=== PATIENT | male | born 1990 | race Caucasian/White ===

== ENCOUNTER 2019-10-29 19:03 | Emergency (ER) | payer BC, SELFPAY ==
[2019-10-29 19:21] VITALS: BP 157/96; PULSE 122; RESP 21; TEMP 37; O2SAT 98; BMI 33.9
--- NOTE | 2019-10-29 19:32 | HMH.EDUTC ---
[facility] [place] Disposition Clinical Impression: URI (upper respiratory infection) Qualifiers: URI type: unspecified URI Qualified Code(s): J06.9 - Acute upper respiratory infection, unspecified Disposition: Home, Self-Care Condition on Discharge: Good Instructions: DI for Fever (Symptom) -- Adult, Preventing the Spread of Coronavirus Discharge Instructions Additional Instructions: *Monitor Temp, Over the counter Motrin or Tylenol as directed/as needed Tylenol every 4 hours and Motrin every 6 hours (as long as your family doctor has told you that you can take it) for fever or pain. and straight to ER if unable to lower temp less than 101.0 after medication given *Warm salt water gargles may help to soothe the throat *Throat Lozenges *Warm fluids like tea with honey may help to soothe the throat *Sleep elevated *Humidifier/Vaporizer You was given handout for instructions to Quarantine for COVID19 make sure to follow instructions to help prevent the spread of COVID Go home and self Quarantine while waiting for result of testing, call back to the [facility] on Saturday after 1pm to see if your test results are back and follow instructions on card for quarantine instructions Your throat swab was sent for culture. Those results are typically sent to your primary care. Be sure to follow up in 2-3 days with your family doctor/primary care physician if no improvement so they can review those result and treat if necessary. If you don?t have a primary care doctor, I recommend you get one but in the mean time, you will have to return to a walk in clinic Follow up IMMEDIATELY for new or worsening symptoms or no Noticeable improvement over the next 48-72 hours. 911 for difficulty breathing or swallowing Prescriptions: Fluticasone Propionate [Flonase 50mcg nasal spray 16gm] 1 - 2 spr NS DAILY #1 bottle Transmission Status: Received by [facility] # Azithromycin [Z-Ovidio 250mg Tab] 250 mg PO DIRECTED #6 tab Transmission Status: Received by [facility] # Referrals: Abbe Rodriguez MD [Primary Care Provider] - As needed Forms: Work/School Release Time of Disposition: 19:56 Medical Decision Making - Tristen Inquiry Pt receiving controlled substance: No Tristen was queried for this patient: No Vital Signs: 10/29/19 19:21 10/29/19 19:52 Temperature 98.6 F 98.6 F Temperature Source Oral Pulse Rate 111 H Pulse Rate [Right Brachial] 122 H Respiratory Rate 21 21 Blood Pressure 157/96 H Blood Pressure [Right Arm] 157/96 H Blood Pressure Mean [Right Arm] 116 Blood Pressure Source [Right Arm] Automatic Cuff Blood Pressure Position [Right Arm] Sitting 02 Sat by Pulse Oximetry 98 Oxygen Delivery Method Room Air - Lab Data Lab results reviewed: Yes: I reviewed the patient's lab results. Orders (Tests/Meds): ORDERS Category Date Time Status SARS-CoV-2, NILA Stat Lab 10/29/19 19:45 Received [facility] [place] HPI - General Stated complaint: fever,body pain Time Seen by Provider: 10/29/19 19:32 Mode of Arrival: Ambulatory Source of Information: Patient Limitations: No Limitations Description of Symptoms (Recalled from Triage Doc. by RN): PATIENT C/O CHILLS, DIARRHEA, FEVER, HEADACHE, AND BODY ACHES SINCE SATURDAY HEENT Symptoms (Recalled from RN notes): No Resp Symptoms (Recalled from RN notes): No Skin Symptoms (Recalled from RN notes): No MS Symptoms (Recalled from RN notes): Yes Functional Status (Recalled from RN notes): WNL - History of Present Illness Provider Complaint: Patient states that he hasnt been feeling well since Saturday States that he has been having diarrhea, body aches, chills, fever and over all feeling ill State that his throat felt scratchy today and was achy all over so he came in to get checked out - Related Data Previous Rx's Medication Instructions Recorded Azithromycin [Z-Ovidio 250mg Tab] 250 mg PO DIRECTED #6 tab 10/29/19 Fluticasone Propionate [Flonase 1 - 2 spr NS DAILY #
[2019-10-29 19:52] VITALS: BP 157/96; PULSE 111; RESP 21; TEMP 37; O2SAT 98
[2019-10-30 14:55] LABS: UTC Strep Screen (Rapid) Negative (Negative)
[2019-10-31 13:02] LABS: Covid-19 Nasal PCR Sendout Lex Not Detected
== END 2019-10-29 19:55 | disposition home or self-care (01) ==
PROVIDERS: Emergency Provider Nurse Practitioner; PCP Family Medicine
DX: J06.9 Acute upper respiratory infection, unspecified (principal)
CPT/HCPCS: 87880; 99201; U0004

== ENCOUNTER 2020-10-08 13:44 | Emergency (ER) | payer BC, SELFPAY ==
[2020-10-08 14:20] VITALS: BP 142/91; PULSE 82; RESP 19; TEMP 36.9; O2SAT 99; BMI 31.3
--- NOTE | 2020-10-08 15:03 | HMH.EDUTC ---
[facility] [place] Disposition Clinical Impression: Impacted ear wax Qualifiers: Laterality: right Qualified Code(s): H61.21 - Impacted cerumen, right ear Disposition: Home, Self-Care Condition on Discharge: Good Instructions: Cerumen Impaction Additional Instructions: Over the counter Debrox may help with ear wax removal use as directed on bottle Return if needed Straight to ER if any life threatening symptoms Referrals: Michael Connolly MD [Primary Care Provider] - As needed Time of Disposition: 15:17 Medical Decision Making - Tristen Inquiry Pt receiving controlled substance: No Tristen was queried for this patient: No Vital Signs: 10/08/20 14:20 10/08/20 15:18 Temperature 98.4 F 98.4 F Temperature Source Oral Pulse Rate 82 Pulse Rate [Right Brachial] 82 Respiratory Rate 19 19 Blood Pressure 142/91 H Blood Pressure [Right Arm] 142/91 H Blood Pressure Mean [Right Arm] 108 Blood Pressure Source [Right Arm] Automatic Cuff Blood Pressure Position [Right Arm] Sitting 02 Sat by Pulse Oximetry 99 Oxygen Delivery Method Room Air [facility] [place] HPI - General Stated complaint: compacted ear wax in Rt ear Time Seen by Provider: 10/08/20 15:03 Mode of Arrival: Ambulatory Source of Information: Patient Limitations: No Limitations Description of Symptoms (Recalled from Triage Doc. by RN): PATIENT C/O COMPACTED EAR WAX TO RIGHT EAR, DECREASED HEARING SINCE SATURDAY HEENT Symptoms (Recalled from RN notes): Yes Resp Symptoms (Recalled from RN notes): No Skin Symptoms (Recalled from RN notes): No MS Symptoms (Recalled from RN notes): No Functional Status (Recalled from RN notes): WNL - History of Present Illness Provider Complaint: Patient states that he wears ear plugs at work State that when he put his ear plug in he felt it push wax back into his right ear and has been unable to hear out of it for the the last few days State that he has tried multiple times to get it out but has been unable to get it out so he came in - Related Data Allergies Allergy/AdvReac Type Severity Reaction Status Date / Time No Known Allergies Allergy Verified 10/29/19 19:27 - Worker's Comp Is this a Worker's Comp case?: No [facility] History - Hepatitis A Screen Drug use history?: No High risk sexual behaviors?: No History of sexually transmitted infection?: No Currently employed?: No Childcare worker?: No Do you have indoor plumbing?: Yes Do you have electricity?: Yes Attestation statement:: This patient has been screened for Hepatitis A risk factors. I have reviewed the patient's past medical history: Yes - Social History Smoking Status: Current every day smoker Tobacco Type: cigarettes # Packs/Day (cigarettes): 0 Alcohol Intake: never Occupational Status: other ROS Obtained: Yes All systems reviewed & no additional complaints, Yes Systems reviewed as appropriate & no additional complaints - Constitutional Constitutional: Reports system reviewed and no additional complaints, except as docu, Denies body ache, Denies chills, Denies fever(s) - ENT Ears, Nose, Mouth, and Throat: Reports system reviewed and no additional complaints, except as docu, Denies otalgia, Denies sinus pain, Denies sinus pressure, Denies sore throat - Cardiovascular Cardiovascular: Reports system reviewed and no additional complaints, except as docu - Respiratory Respiratory: Reports system reviewed and no additional complaints, except as docu - Gastrointestinal Gastrointestingal: Reports: system reviewed and no additional complaints, except as docu Physical Exam - General General appearance: alert, in no apparent distress - Expanded ENT Exam TM/Canal exam: Right TM: cerumen impaction - Respiratory Respiratory exam: Present: normal lung sounds bilaterally. Absent: respiratory distress - Cardiovascular Cardiovascular exam: Present: regular rate, normal rhythm. Absent: JVD - Neurological Exam Neurological exam: Present: alert, orie
[2020-10-08 15:18] VITALS: BP 142/91; PULSE 82; RESP 19; TEMP 36.9; O2SAT 99
== END 2020-10-08 15:23 | disposition home or self-care (01) ==
PROVIDERS: Emergency Provider Nurse Practitioner; PCP Family Medicine
DX: H91.01 Ototoxic hearing loss, right ear (principal); H61.21 Impacted cerumen, right ear; F17.210 Nicotine dependence, cigarettes, uncomplicated
CPT/HCPCS: 99202; G0463

== ENCOUNTER 2022-09-06 01:17 | Emergency (ER) | payer BC, SELFPAY ==
[2022-09-06 01:19] VITALS: BP 120/69; PULSE 103; RESP 16; TEMP 36.8; O2SAT 96; BMI 35.0
[2022-09-06 01:24] VITALS: BP 120/69; PULSE 103; RESP 18; O2SAT 100
[2022-09-06 01:26] VITALS: BMI 35.0
--- NOTE | 2022-09-06 01:29 | XR_ITS ---
PROCEDURE INFORMATION: Exam: XR Right Hand Exam date and time: 09/06/2022 1:40 AM Age: 32 years old Clinical indication: Injury or trauma; Fall; Blunt trauma (contusions or hematomas); Hand; Patient HX: C/O right thumb pain TECHNIQUE: Imaging protocol: Radiologic exam of the right hand. Views: 3 or more views. COMPARISON: No relevant prior studies available. FINDINGS: Bones/joints: No acute osseous abnormality. No dislocation. Soft tissues: No significant soft tissue abnormalities. IMPRESSION: No evidence of acute fracture or dislocation.
--- NOTE | 2022-09-06 01:29 | XR_ITS ---
PROCEDURE INFORMATION: Exam: XR Chest Exam date and time: 09/06/2022 1:43 AM Age: 32 years old Clinical indication: Injury or trauma; Fall; Blunt trauma (contusions or hematomas); Patient HX: Right posterior pain. Fell on corner of bathtub TECHNIQUE: Imaging protocol: Radiologic exam of the chest. Views: 2 views. COMPARISON: No relevant prior studies available. FINDINGS: Lungs: No significant or acute findings. No consolidation. Pleural spaces: No significant costophrenic angle blunting. No pneumothorax. Heart/Mediastinum: Heart size is normal. Bones/joints: No acute osseous abnormality. IMPRESSION: No acute abnormality demonstrated. Nondisplaced fractures of the posterior right 9th, 10th and 11th ribs seen on subsequent chest CT not clearly demonstrated on the current x-ray.
--- NOTE | 2022-09-06 01:29 | XR_ITS ---
PROCEDURE INFORMATION: Exam: XR Pelvis Exam date and time: 09/06/2022 1:38 AM Age: 32 years old Clinical indication: Injury or trauma; Fall; Blunt trauma (contusions or hematomas); Does not apply; Pelvic region TECHNIQUE: Imaging protocol: Radiologic exam of the pelvis. Views: 1 or 2 view. COMPARISON: No relevant prior studies available. FINDINGS: Bones/joints: No acute osseous abnormality. No acute fracture. No dislocation. Soft tissues: No significant soft tissue abnormalities. IMPRESSION: No acute abnormality demonstrated.
--- NOTE | 2022-09-06 01:29 | CT_ITS ---
PROCEDURE INFORMATION: Exam: CT Chest With Contrast; Diagnostic Exam date and time: 09/06/2022 1:58 AM Age: 32 years old Clinical indication: Injury or trauma; Fall; Patient HX: C/O right posterior chest pain. Fell and hit right side on corner of bathtub TECHNIQUE: Imaging protocol: Diagnostic computed tomography of the chest with contrast. 3D rendering (Not supervised by radiologist): MIP and/or 3D reconstructed images were created by the technologist. Radiation optimization: All CT scans at this facility use at least one of these dose optimization techniques: automated exposure control; mA and/or kV adjustment per patient size (includes targeted exams where dose is matched to clinical indication); or iterative reconstruction. Contrast material: ISOVUE; Contrast volume: 75 ml; Contrast route: IV; REPORTING DATA: Count of CT and Cardiac NM exams in prior 12 months: This patient has received 0 known CTs and 0 known cardiac nuclear medicine studies in the 12 months prior to the current study. COMPARISON: CR XR CHEST 2V 09/06/2022 1:43 AM FINDINGS: Lungs: Minimal bibasilar atelectasis. No consolidation. Pleural spaces: No significant pleural effusion. No pneumothorax. Heart: Heart and mediastinal structures appear intact. Heart size is normal. Lymph nodes: No enlarged lymph nodes. Vasculature: No acute abnormality. No aortic aneurysm, pseudoaneurysm or dissection. Bones/joints: Acute nondisplaced fractures of the posterior right 9th, 10th and 11th ribs. Soft tissues: No significant soft tissue abnormalities. IMPRESSION: Acute nondisplaced fractures of the posterior right 9th, 10th and 11th ribs.
[2022-09-06 01:30] VITALS: BP 126/75; PULSE 100; RESP 20; O2SAT 95
[2022-09-06 01:44] LABS: Basophils % 0.5 % (0.1-2.0); Eosinophils # 0.3 K/mm3 (0.0-0.4); Eosinophils % 3.5 % (0.1-12.0); Hematocrit 45.7 % (42.0-52.0); Hemoglobin 15.4 g/dL (14.1-18.0); Lymphocytes # 1.8 K/mm3 (0.7-4.5); Lymphocytes % 21.5 % (10-50); Mean Corpuscular HGB Conc 33.8 g/dL (31.8-35.4); Mean Corpuscular Hemoglobin 30.8 pg (27.0-31.2); Mean Platelet Volume 8.7 fl (7.4-10.4); Monocytes # 0.6 K/mm3 (0.1-1.0); Monocytes % 7.3 % (1.7-9.3); Neutrophils # 5.7 K/mm3 (1.8-7.8); Neutrophils % 67.1 % (37.0-80.0); Platelet Count 219 K/mm3 (142-424); Red Blood Count 5.02 M/mm3 (4.60-6.20); Red Cell Distribution Width 13.5 % (11.5-17.5); White Blood Count 8.5 K/mm3 (4.8-10.8)
[2022-09-06 01:49] LABS: Chloride 98 mmol/L (98-107)
[2022-09-06 01:50] LABS: Potassium 4.3 mmoL/L (3.5-5.1); Sodium 140 mmol/L (136-145)
[2022-09-06 01:52] LABS: Alanine Aminotransferase 57 U/L (12-78); Alkaline Phosphatase 77 U/L (38-126); Aspartate Amino Transferase 39 U/L (17-59); Bilirubin,Total 0.2 mg/dl (0.2-1.3); Blood Urea Nitrogen 10 mg/dl (9-20); Creatinine Clearance Estimated 181 mL/min (50-200); Estimated Glomerular Filt Rate 111 ml/min (>60); GFR (African American) 134 ML/MIN (>60)
[2022-09-06 01:53] LABS: Albumin Level 4.6 g/dl (3.5-5.0); Albumin/Globulin Ratio 1.6 (1.1-1.8); Anion Gap 23.3 mEq/L (5-15); Calcium 9.3 mg/dl (8.4-10.2); Carbon Dioxide 23 mmol/L (22.0-30.0); Globulin 2.8 g/dL (1.3-3.2); Glucose 102 mg/dl (74-100); Total Protein,Serum 7.4 g/dl (6.3-8.2)
[2022-09-06 02:07] VITALS: BP 115/75; PULSE 98; RESP 16; O2SAT 97
--- NOTE | 2022-09-06 02:11 | HMH.EDFALL ---
Discharge Plan Disposition Patient Disposition: Home, Self-Care Prescriptions Prescriptions: New meloxicam 15 mg tablet 15 mg PO DAILY Qty: 10 0RF Referrals Follow up/Referrals: Michael Connolly MD [Primary Care Provider] - See instructions Clinical Impressions Clinical Impression: Fracture, ribs Instructions Patient Instructions: DI for Rib Fracture Discharge ED Provider: Mechelle (ED),Thompson Mei Fall [facility] General Chief Complaint: Fall Stated Complaint: AO fell in shower 09/05/22 2230 Time Seen by Provider: 09/06/22 02:11 Mode of Arrival: Ambulatory Source of Information: Patient, Spouse and Medical Record Limitations: No Limitations Description of Symptoms (Recalled from ER Triage Doc. by RN): pt states he fell in bathtub hitting the edge. pt c/o rt thoraic pain and rt thumb pain. pt denies loc History of Present Illness MD complaint: fall Onset (ago): hour(s) Fall from: standing Fall witnessed: no Place fall occurred: home Loss of consciousness: none Prolonged down time: no Context: tripped/slipped Severity: moderate Associated symptoms (after fall): denies Related Data Previous Rx's Medication Instructions Recorded meloxicam 15 mg tablet 15 mg PO DAILY #10 tabs 09/06/22 Allergies Allergy/AdvReac Type Severity Reaction Status Date / Time No Known Allergies Allergy Verified 10/29/19 19:27 [facility] Disclaimer: The information contained in this section may have been updated after the patient was seen, as this information can be updated by other users. Social History Smoking Status: Current every day smoker tobacco type: cigarettes packs per day: 0 alcohol intake: never current occupational status: other Travel in the last 8 weeks: None ROS Obtained: Yes All systems reviewed & no additional complaints except as documented Physical Exam General General appearance: alert Head Head exam: normocephalic Eye Eye exam: Present PERRL and EOMI ENT ENT exam: Present mucous membranes moist Neck Neck exam: Present trachea midline Chest Chest inspection: Present tenderness Respiratory Respiratory exam: Absent respiratory distress Cardiovascular Cardiovascular exam: Present regular rate Abdominal Exam Abdominal exam: Present soft; Absent tenderness or guarding Extremities Exam Extremities exam: Absent joint swelling Back Exam Back exam: Present CVA tenderness (R); Absent vertebral tenderness Neurological Exam Neurological exam: Present alert, oriented X3 and CN II-XII intact; Absent motor sensory deficit Psychiatric Psychiatric exam: Present normal affect Skin Skin exam: Absent rash Medical Decision Making Medical Records Medical records reviewed: Yes I reviewed the patient's medical records. Tristen Inquiry Pt receiving controlled substance: No Vital Signs: 09/06/22 01:19 09/06/22 01:24 09/06/22 01:30 Temperature 98.2 F Temperature Source Oral Pulse Rate 103 H 100 H Pulse Rate [Right] 103 H Respiratory Rate 16 18 20 Blood Pressure 120/69 126/75 Blood Pressure [Right Arm] 120/69 Blood Pressure Mean 84 92 Blood Pressure Mean [Right Arm] 86 02 Sat by Pulse Oximetry 96 100 95 09/06/22 02:07 09/06/22 02:46 Temperature 98.2 F Temperature Source Oral Pulse Rate 98 H 91 H Pulse Rate [Right] Respiratory Rate 16 16 Blood Pressure 115/75 119/73 Blood Pressure [Right Arm] Blood Pressure Mean 83 Blood Pressure Mean [Right Arm] 02 Sat by Pulse Oximetry 97 Lab Data Lab results reviewed: Yes I reviewed the patient's lab results. Lab Results 09/06/22 01:35: WBC 8.5, RBC 5.02, Hgb 15.4, Hct 45.7, MCV 91.0, MCH 30.8, MCHC 33.8, RDW 13.5, Plt Count 219, MPV 8.7, Neut % (Auto) 67.1, Lymph % (Auto) 21.5, [place] % (Auto) 7.3, Eos % (Auto) 3.5, Baso % (Auto) 0.5, Neut # (Auto) 5.7, Lymph # (Auto) 1.8, [place] # (Auto) 0.6, Eos # (Auto) 0.3, Baso # (Auto) 0.0 09/06/22 01:35: Sodium 140, Potassium 4.3, Chloride 98, Carbon Dioxide 23, Anion Gap 2
[2022-09-06 02:30] VITALS: BP 126/78; PULSE 96; RESP 20; O2SAT 98
[2022-09-06 02:46] VITALS: BP 119/73; PULSE 91; RESP 16; TEMP 36.8; O2SAT 97
== END 2022-09-06 03:04 | disposition home or self-care (01) ==
PROVIDERS: Emergency Provider Emergency Medicine; PCP Family Medicine
DX: S22.41XA Multiple fractures of ribs, right side, initial encounter for closed fracture (principal); F17.210 Nicotine dependence, cigarettes, uncomplicated; W18.2XXA Fall in (into) shower or empty bathtub, initial encounter
CPT/HCPCS: 71046; 71260; 72170; 73130; 80053; 85025; 96374; 99284; 99285; J0131; Q9967

== ENCOUNTER 2023-10-21 10:32 | Emergency (ER) | payer BC, SELFPAY ==
[2023-10-21 10:33] VITALS: BP 130/81; PULSE 98; RESP 16; TEMP 36.6; O2SAT 98; BMI 34.7
--- NOTE | 2023-10-21 10:57 | HMH.EDGENADL ---
Discharge Plan Disposition Patient Disposition: Home, Self-Care Prescriptions Prescriptions: New prednisone 20 mg tablet 40 mg PO DAILY 5 Days Qty: 10 0RF methocarbamol 750 mg tablet 1,500 mg PO TID 5 Days Qty: 30 0RF No Action levofloxacin 500 mg tablet 500 mg PO doxycycline hyclate 100 mg tablet 100 mg PO BID 10 Days Qty: 20 0RF Referrals Follow up/Referrals: Dimitris Gonzales PT [Physical Therapist] - See instructions Michael Connolly MD [Primary Care Provider] - See instructions Activity Restrictions/Add. Instructions Additional Instructions/Restrictions: Prednisone each morning for the next 5 days. Take with plenty of food and water. Robaxin can cause you to feel drowsy. Do not drive, operate heavy machinery, or engage in any activity that may make you tired, fall asleep, and because harm to yourself or others while taking this medication. Call your family doctor to establish care for this visit to the emergency department and schedule follow-up within 48 hours to ensure improvement. If you have any worsening of your condition or any other concerning signs or symptoms, return to the emergency department or your primary care doctor for further evaluation. Clinical Impressions Clinical Impression: Acute lumbar radiculopathy Instructions Patient Instructions: DI for Low Back Pain Discharge ED Provider: Mason Purcell General Adult HPI General Chief complaint: Back Pain/Injury Stated complaint: Pain in lower back Time Seen by Provider: 10/21/23 10:42 Mode of Arrival: Ambulatory Source of Information: Patient Limitations: No Limitations Description of Symptoms (Recalled from ER Triage Doc. by RN): Patient reports lower back pain that started Saturday and just hasn't gotten any better. Denies any injury. History of Present Illness HPI narrative: Please note that above description of symptoms, in this electronic medical record under categorization of recalled from ER triage doctor by RN are reflective of an initial nursing assessment, however, is not reflective of my full history and physical exam that was personally taken and clarified. Consequentially, this preceding description of symptoms, which may include the patient's categorized chief complaint in the EMR, do not reflect my personal clinical impression, and the ultimate description of history of present illness and patient stated complaints should be deferred to this section of the note. Unless stated otherwise or congruent with this section of the note, additional signs, symptoms, or incongruence should be interpreted as inaccurate with my clinical impression. Related Data Home Medications Medication Instructions Recorded Confirmed levofloxacin 500 mg tablet 500 mg PO 05/09/23 05/09/23 Previous Rx's Medication Instructions Recorded doxycycline hyclate 100 mg tablet 100 mg PO BID 10 days #20 tabs 05/09/23 methocarbamol 750 mg tablet 1,500 mg (2 x 750 mg) PO TID 5 10/21/23 days #30 tabs prednisone 20 mg tablet 40 mg (2 x 20 mg) PO DAILY 5 days 10/21/23 #10 tabs Allergies Allergy/AdvReac Type Severity Reaction Status Date / Time No Known Allergies Allergy Verified 05/09/23 11:04 [facility] Disclaimer: The information contained in this section may have been updated after the patient was seen, as this information can be updated by other users. Social History Smoking Status: Current every day smoker tobacco type: cigarettes packs per day: 0 alcohol intake: never current occupational status: other Travel in the last 8 weeks: None ROS Obtained: Yes All systems reviewed & no additional complaints except as documented Physical Exam General General appearance: alert Head Head exam: atraumatic and normocephalic Eye Eye exam: Present normal appearance, PERRL and EOMI Neck Neck exam: Present normal inspection, full ROM and trachea midline Respiratory Respiratory exam: Absent respiratory distress, wheezes, stridor, accessory muscle use or prolonged expiratory phase Cardiovascular Cardiovascular exam: Present other (Pulses equal symmetric in upper and lower extremities) Abdominal Exam Abdominal exam: Present soft; Absent distention, tenderness or pulsatile mass Extremities Exam Extremities exam: Absent edema Back Exam Back exam: Present normal inspection and full ROM; Absent tenderness, CVA tenderness (R), CVA tenderness (L), sciatic notch tenderness (R) or sciatic notch tenderness (L) Neurological Exam Neurological exam: Present alert, oriented X3 and CN II-XII intact; Absent motor sensory deficit Skin Skin exam: Present warm and dry; Absent diaphoresis or erythema Medical Decision Making Medical Records Medical records reviewed: Yes I reviewed the patient's medical records. Tristen Inquiry Pt receiving controlled substance: No Tristen was queried for this patient: No Vital Signs: 10/21/23 10:33 Temperature 97.9 F Temperature Source Oral Pulse Rate [Radial] 98 H Respiratory Rate 16 Blood Pressure [Right Arm] 130/81 Blood Pressure Mean [Right Arm] 97 Blood Pressure Source [Right Arm] Automatic Cuff Blood Pressure Position [Right Arm] Sitting 02 Sat by Pulse Oximetry 98 Oxygen Delivery Method Room Air Medical Decision Narrative: This is a 33-year-old male no relevant medical history presenting with concern for back pain. Patient states that he has had sciatica-like back pain radiating from his back down into his right buttock on and off for the last couple of months. Since Saturday, 3 days prior to this visit, patient states that he has been having pain radiating from his lower back around both sides to his abdomen. Does not radiate through. Tried ibuprofen, did not help much. No fevers or chills, urinary symptoms, hematuria, blood in the stool, constipation, diarrhea, overlying skin changes, chronic daily drinking, or any other concerns. No recent or prior back injuries. History obtained with patient. On arrival, patient hemodynamically stable, in no acute distress. States pain is mild. Neurologically intact and ambulatory without issue. Back exam intact, no overlying skin changes or abnormalities. No flank tenderness. No tenderness elicited on my exam at all. Because patient not having urinary symptoms, no history of stones, no flank percussion tenderness, urinary symptoms, etc., urine was considered, but not deemed necessary. Imaging of the spine including CT was considered, but not deemed necessary given patient has no neurologic deficits and is very well-appearing. Because patient at baseline without signs or symptoms of clinical decompensation, deemed appropriate for discharge. Results were relayed to patient who voiced understanding and were agreeable to outpatient management and follow up. I discussed my clinical impression with patient and answered all questions. At this time, the evidence for any other entities in the differential is insufficient to warrant any further testing or ED observation. This was explained as well. Advisory was given that persistent or worsening symptoms require further evaluation. I confirmed the understanding of this discussion. Stuffing Machine Operator disclaimer Much of this encounter note is an electronic leather goods maker spoken language to printed text. Electronic leather goods maker of the spoken language may permit errors. Although I have reviewed the note, some errors may still exist. Critical Care Critical Care Time Critical Care Time: No
[2023-10-21 11:03] VITALS: BP 128/94; PULSE 85; RESP 16; TEMP 36.7; O2SAT 98
== END 2023-10-21 11:06 | disposition home or self-care (01) ==
PROVIDERS: Emergency Provider Emergency Medicine; PCP Family Medicine
DX: M54.16 Radiculopathy, lumbar region (principal)
CPT/HCPCS: 99283

== ENCOUNTER 2024-10-13 18:01 | Emergency (ER) | payer BC, SELFPAY ==
[2024-10-13] VITALS (7 sets, daily range): BP systolic 121–152; BP diastolic 74–98; PULSE 70–84; RESP 16–20; TEMP 36.8; O2SAT 95–98; BMI 33.9
--- OUTSIDE RECORDS SUMMARY | 2024-10-13 18:09 | XMS_ITS | Clinical Summary ---
Author Organization [facility] Address [address] [place] [id number] Phone [email or web address] Care Team Providers Care Supervisor Compounding And Finishing Name Role Phone Abbe Rodriguez MD Primary Care Provider [phone] Allergies No known active allergies Medications No known medications Active Problems Problem Noted Date Diagnosed Date Encounter for hearing examination without abnorm al findings 02/19/2011 Overview (09/11/2017): Other nonspecific finding on examination of urin e 10/16/2007 Overview (09/11/2017): Abdominal pain 10/16/2007 Overview (09/11/2017): Social History Tobacco Use Types Packs/Day Years Used Date Smoking Tobacco: Every Day Cigarettes Smokeless Tobacco: Never Intimate Partner Violence Answer Date R ecorded Insults You Not on file 07/26/2020 Threatens You Not on file 07/26/2020 Screams at You Not on file 07/26/2020 Physically Hurt Not on file 07/26/2020 Intimate Partner Violence Score Not on file 07/26/2020 Depression Answer Date Recorded PHQ Total Score 0 01/27/2022 Stress Answer Date Recorded Stress in your Life Not on file 02/17/2024 Dealing with Stress 3 02/17/2024 Sex and Gender Information Value Date Recorded Sex Assigned at Male 06/09/2024 7:03 AM SEARCH ENGINE OPTIMIZATION ANALYST Legal Sex Male 8:55 AM CDT Gender Identity Male 06/09/2024 7:03 AM SEARCH ENGINE OPTIMIZATION ANALYST Sexual Orientation Not on file Last Filed Vital Signs Vital Sign Reading Time Taken Comments Blood Pressure 120/78 06/09/2024 8:19 AM EST Pulse 92 06/09/2024 8:19 AM EST Temperature 36.3 C (97.3 F) 06/09/2024 8:19 AM EST Respiratory Rate 14 06/09/2024 8:19 AM EST Oxygen Saturation 96% 06/09/2024 8:19 AM EST Inhaled Oxygen Concentration - - Weight 97.1 kg (214 lb) 06/09/2024 8:19 AM EST Height 167.6 cm (5' 6 ) 06/09/2024 8:19 AM EST Body Mass Index 34.54 06/09/2024 8:19 AM EST Plan of Treatment Health Maintenance Due Date Last Done Comments Dental Cleaning/Exam 1988 HIV Screening 1988 Hepatitis C Screening 1988 Annual Preventive Exam 2006 Hep B Infection Screening - Triple Screen 2006 Hepatitis B Immunization (1 of 3 - 19+ 3-dose series) 2007 Pneumococcal: Ped (0 to 5 Yr s) and At-Risk Member (6 to 64 Yrs) (1 of 2 - PCV) 2007 Tetanus Diphtheria and Pertu ssis Immunization (1 - Tdap) 2007 Covid-19 Immunization (1 - 2 season) 2023 Influenza Immunization (Seas on Ended) 2024 HIB Immunization Aged Out No longer e ligible based on patient's age to complete this topic HPV Immunization Aged Out No longer e ligible based on patient's age to complete this topic Hepatitis A Immunization Aged Out No longer eligible based on patient's age to complete this topic Polio Immunization Aged Out No longer eligible based on patient's age to complete this topic Varicella Immunization Aged Out No lo nger eligible based on patient's age to complete this topic Insurance OPT OUT NO COPAY NB Care Teams Supervisor Compounding And Finishing Relationship Specialty Start Date End Date Abbe Rodriguez MD [address] [facility] [address] [facility] [address] PCP - General Stapler Machine 08/25/21
--- NOTE | 2024-10-13 18:13 | ED_ITS ---
Discharge Plan Disposition Patient Disposition: Home, Self-Care Condition: Good Prescriptions Prescriptions: New ketorolac 10 mg tablet 10 mg PO Q8H PRN (Reason: pain) Qty: 12 0RF tamsulosin [Flomax] 0.4 mg capsule 0.4 mg PO HS Qty: 14 0RF ondansetron 4 mg tablet,disintegrating 4 mg PO Q8H PRN (Reason: nausea and vomiting) 4 Days Qty: 12 0RF oxycodone 5 mg tablet 5 mg PO Q8H PRN (Reason: pain) Qty: 12 0RF Referrals Follow up/Referrals: Michael Connolly MD [Primary Care Provider, Medical] - See instructions Activity Restrictions/Add. Instructions Additional Instructions/Restrictions: You were evaluated in the emergency department today. You were diagnosed with a kidney stone. Follow-up closely with urology. We do not have an interventional urologist at our healthcare facility, but one close option is Dr. Jean Wade with [facility] who has office hours in [place] ([address] [place] [address] [address], [place] [address] - [phone]). You will need to call a urologist to schedule an appointment. Please make sure you drink plenty of fluids and stay orally hydrated. Toradol is an NSAID like ibuprofen and aleve, so do not take other NSAIDs while taking this medication. Try getting by with toradol and Tylenol, but you may choose to take the narcotic pain medication provided to you in the event of severe pain not controlled by these medications. Do not drive or operate heavy machinery while taking narcotic pain medication, as it can be sedating. Narcotic pain medication can be addicting and can cause constipation. Follow-up closely with your primary care provider as well. Return to the emergency department for new or worsening symptoms such as significant worsening in pain, fever greater than 100.4 ?F, intractable nausea and vomiting. Clinical Impressions Clinical Impression: Ureterolithiasis Stand Alone Forms Stand Alone Forms: Work/School Release Instructions Patient Instructions: DI for Kidney Stones Print Language Print Language: Omani Discharge ED Provider: Karis Coleman General Adult HPI <Kesha Yusuf (ED), COMMERCIAL GREEN BUILDING DESIGNER - Last Filed: 10/13/24 18:59> General Chief complaint: Abdominal Pain Stated complaint: Lower abdominal pain Time Seen by Provider: 10/13/24 18:06 History of Present Illness HPI narrative: 34-year-old male presents to the ED today with left upper and lower abdominal pain that started consistently over the last 2 hours. States that it started intermittently yesterday about 3 PM. It was on and off yesterday. But today its become more severe. No nausea, vomiting or diarrhea. No fevers or chills. No abdominal surgeries in the past. A year ago he broke 3 ribs on the right. No other real medical history. Related Data Previous Rx's ?Medication ?Instructions ?Recorded ketorolac 10 mg tablet 10 mg PO Q8H PRN pain #12 ta bs 10/13/24 ondansetron 4 mg disintegrating 4 mg PO Q8H PRN nausea and 10/13/24 tablet vomiting 4 days #12 tabs oxycodone 5 mg tablet 5 mg PO Q8H PRN pain #12 tab s 10/13/24 tamsulosin 0.4 mg capsule (Flomax) 0.4 mg PO HS #14 ca ps 10/13/24 Allergies Allergy/AdvReac Type Severity Reaction Status Date / Time doxycycline AdvReac Rash Verified 10/13/24 19:09 PFS <Kesha Yusuf (ED), COMMERCIAL GREEN BUILDING DESIGNER - Last Filed: 10/13/24 18:59> [facility] Disclaimer: The information contained in this section may have been updated after the patient was seen, as this information can be updated by other users. Social History Smoking Status: Current every day smoker tobacco type: cigarettes packs per day: 0 alcohol intake: never current occupational status: other Travel in the last 8 weeks?: None Have you lived/traveled outside US in past 30 days?: No Contact w/someone who lives/traveled outside US past 30 days?: No Exposure to someone with infectious disease in past 14 days?: No Do you have a fever (greater than 100.4 F or 38 C)?: No Have you tested positive for COVID-19?: No Exposed to someone with COVID-19 in past 14 days?: No Do you have a sore throat?: No Do you have a cough?: No Do you have any weakness?: No Do you have any diarrhea?: No Are you experiencing any unusual bleeding?: No Do you have any muscle aches/pain?: No Do you have any abdominal pain?: No Are you experiencing loss of taste or smell?: No <Kesha Yusuf (ED), COMMERCIAL GREEN BUILDING DESIGNER - Last Filed: 10/13/24 18:59> ROS Obtained: Yes Systems reviewed as appropriate & no additional complaints except as documented Constitutional Constitutional: Reports as per HPI Physical Exam <Kesha Yusuf (ED), COMMERCIAL GREEN BUILDING DESIGNER - Last Filed: 10/13/24 18:59> General General appearance: alert and in distress Head Head exam: normocephalic Eye Eye exam: Present PERRL and EOMI ENT ENT exam: Present normal oropharynx and mucous membranes moist Neck Neck exam: Present normal inspection, full ROM and trachea midline Respiratory Respiratory exam: Present normal lung sounds bilaterally Cardiovascular Cardiovascular exam: Present regular rate, normal rhythm, normal heart sounds, +S1 and +S2 Abdominal Exam Abdominal exam: Present soft, tenderness and normal bowel sounds Abdominal tenderness: Present LUQ and LLQ Extremities Exam Extremities exam: Present normal inspection, full ROM and normal capillary refill Neurological Exam Neurological exam: Present alert, oriented X3 and normal gait Skin Skin exam: Present warm, dry and intact Medical Decision Making <Kesha Yusuf (ED), COMMERCIAL GREEN BUILDING DESIGNER - Last Filed: 10/13/24 18:59> Medical Records Medical records reviewed: Yes I reviewed the patient's medical records. Screening: Per USPSTF and CDC recommendations, given the prevalence of disease in our region, it is our hospital?s policy to screen for HIV and viral Hepatitis for all patients aged 18 and over and those with ongoing risk factors. Tristen Inquiry Pt receiving controlled substance: No Tristen was queried for this patient: No Vital Signs: 10/13/24 18:15 10/13/24 19:00 10/13/24 19:30 Temperature 98.3 F Temperature Source Oral Pulse Rate 82 84 Pulse Rate [Right Radial] 82 Respiratory Rate 20 Blood Pressure 121/75 125/74 Blood Pressure [Right Arm] 152/98 H Blood Pressure Mean Blood Pressure Mean [Right Arm] 116 Blood Pressure Source [Right Arm] Automatic Cuff Blood Pressure Position Blood Pressure Position [Right Arm] Supine 02 Sat by Pulse Oximetry 96 98 95 Oxygen Delivery Method Room Air 10/13/24 20:00 10/13/24 20:30 10/13/24 21:00 Temperature Temperature Source Pulse Rate 83 75 74 Pulse Rate [Right Radial] Respiratory Rate Blood Pressure 133/78 129/83 124/84 Blood Pressure [Right Arm] Blood Pressure Mean 91 Blood Pressure Mean [Right Arm] Blood Pressure Source [Right Arm] Blood Pressure Position Blood Pressure Position [Right Arm] 02 Sat by Pulse Oximetry 97 96 98 Oxygen Delivery Method 10/13/24 21:19 Temperature 98.3 F Temperature Source Oral Pulse Rate 70 Pulse Rate [Right Radial] Respiratory Rate 16 Blood Pressure 124/84 Blood Pressure [Right Arm] Blood Pressure Mean Blood Pressure Mean [Right Arm] Blood Pressure Source [Right Arm] Blood Pressure Position Sitting Blood Pressure Position [Right Arm] 02 Sat by Pulse Oximetry Oxygen Delivery Method Room Air Lab Data Lab Results 10/13/24 19:18: Urine Color Yellow, Urine Appearance Clear, Urine pH 6.0, Ur Specific [place] 1.015, Urine Protein Negative, Urine Glucose (UA) Negative, Urine Ketones Negative, Urine Blood 3+ A, Urine Nitrate Negative, Urine Bilirubin Negative, Urine Urobilinogen 0.2, Ur Leukocyte Esterase Negative, Urine RBC Tntc, Urine WBC 3-5, Ur Squamous Epith Cells 5-10, Urine Bacteria 3+, Urine Mucus 1+ 10/13/24 20:19: Urine Color Yellow, Urine Appearance Clear, Urine pH 6.0, Ur Specific [place] <= 1.005, Urine Protein Negative, Urine Glucose (UA) Negative, Urine Ketones Negative, Urine Blood 3+ A, Urine Nitrate Negative, Urine Bilirubin Negative, Urine Urobilinogen 0.2, Ur Leukocyte Esterase Negative, Urine RBC 50-100, Urine WBC 3-5, Ur Squamous Epith Cells Occasional, Urine Bacteria Trace 10/13/24 : WBC 12.4 H, RBC 4.96, Hgb 14.9, Hct 42.9, MCV 86.5, MCH 30.0, MCHC 34.7, RDW 12.9, Plt Count 277, MPV 11.0 H, Neut % (Auto) 58.1, Lymph % (Auto) 32.0, [place] % (Auto) 6.4, Eos % (Auto) 2.4, Baso % (Auto) 0.5, Neut # (Auto) 7.2, Lymph # (Auto) 4.0, [place] # (Auto) 0.8, Eos # (Auto) 0.3, Baso # (Auto) 0.1, PT 10.6, INR 0.95, Sodium 138, Potassium 3.5, Chloride 102, Carbon Dioxide 22, A nion Gap 17.5 H, BUN 17, Creatinine 1.00, Estimated Creat Clear 138, Estimated GFR 85, Est GFR ( Amer) 102, Glucose 111 H, Calcium 10.2, Magnesium 2.1, Total Bilirubin 0.5, AST 32, ALT 48, Alkaline Phosphatase 66, Troponin I < 0.01, Total Protein 8.1, Albumin 5.3 H, Globulin 2.8, Albumin/Globulin Ratio 1.9 H, Lipase 45 10/13/24 Unknown 10/13/24 Unknown Orders (Tests/Meds): ED MEDICATIONS Discontinued Medications Generic Name Dose Route Start Last Admin Trade Name Freq PRN Reason Stop Dose Admin Famotidine 20 mg 10/13/24 18:10 10/13/24 18:23 Famotidine 20mg/2ml Vial IV 10/13/24 18:11 20 mg ONCE ONE Administration Sodium Chloride 1,000 mls @ 999 mls/hr 10/13/24 18:10 10/13/24 18:23 Sod Chlor 0.9% 1000ml Bag IV 10/13/24 19:10 999 mls/hr .Q1H1M ONE Administration Iopamidol 75 ml 10/13/24 19:13 10/13/24 19:13 Iopamidol-370 (76%);100ml Bottle IV 10/13/24 19:14 75 ml ONCE ONE Administration Ketorolac Tromethamine 30 mg 10/13/24 18:10 10/13/24 18:22 Ketorolac 30mg/Ml Vial IV 10/13/24 18:11 30 mg ONCE ONE Administration Ondansetron HCl 4 mg 10/13/24 18:10 10/13/24 18:22 Ondansetron 4mg/2ml Vial IV 10/13/24 18:11 4 mg ONCE ONE Administration Oxycodone HCl 5 mg 10/13/24 20:55 10/13/24 21:05 Oxycodone 5mg Immediate Release Tablet PO 10/13/24 20:56 5 mg ONCE ONE Administration Sodium Chloride 8 ml 10/13/24 18:10 Sodium Chloride 0.9% 10ml Vial IV 11/12/24 18:09 NEEDED PRN dilute pepcid Sodium Chloride 10 ml 10/13/24 19:13 10/13/24 19:13 Sodium Chloride 0.9% 10ml Syr (Rad Only) IV 10/13/24 19:14 10 ml ONCE ONE Administration Tamsulosin HCl 0.4 mg 10/13/24 20:56 10/13/24 21:05 Tamsulosin 0.4mg Capsule PO 10/13/24 20:57 0.4 mg ONCE ONE Administration ORDERS Category Date Time Status CT abdomen pelvis w con Stat Cat Scan 10/13/24 18:58 Completed CBC [Complete Blood Count Auto Diff] Stat Lab 10/13/24 Completed Comprehensive Metabolic Panel Stat Lab 10/13/24 Completed Lipase Stat Lab 10/13/24 Completed Magnesium Stat Lab 10/13/24 Completed PT INR [Prothrombin Time INR] Stat Lab 10/13/24 Completed Trop I [Troponin I] Stat Lab 10/13/24 Completed UA [Urinalysis and Microscopic] Stat Lab 10/13/24 19:18 Completed UA [Urinalysis and Microscopic] Stat Lab 10/13/24 20:19 Completed Urine Culture Stat Micro 10/13/24 19:18 Received HEART Score History (anamnesis): Moderately suspicious ECG: Non-specific disturbance Age: >65 years Risk factors: 3 or more risk factors Troponin: </= normal limit HEART Score: 6 Medical Decision Narrative: patient is a 34-year-old male presenting to the emergency department for evaluation of left-sided abdominal pain that started consistently 2 hours ago. Patient is hemodynamically stable and nontoxic-appearing upon arrival, afebrile. Differential diagnosis includes pancreatitis, diverticulitis, bowel obstruction among others. Workup will be conducted with hematologic labs, specific imaging. Initial inventions include crystalloid bolus, analgesics. Awaiting lab results and scan results at this time. Will give report to Dr. Coleman <Karis Coleman, DO - Last Filed: 10/13/24 23:42> Tristen Inquiry Pt receiving controlled substance: Yes Tristen was queried for this patient: Yes Risks and benefits of using a controlled substance: were discussed with pt by me Vital Signs: 10/13/24 18:15 10/13/24 19:00 10/13/24 19:30 Temperature 98.3 F Temperature Source Oral Pulse Rate 82 84 Pulse Rate [Right Radial] 82 Respiratory Rate 20 Blood Pressure 121/75 125/74 Blood Pressure [Right Arm] 152/98 H Blood Pressure Mean Blood Pressure Mean [Right Arm] 116 Blood Pressure Source [Right Arm] Automatic Cuff Blood Pressure Position Blood Pressure Position [Right Arm] Supine 02 Sat by Pulse Oximetry 96 98 95 Oxygen Delivery Method Room Air 10/13/24 20:00 10/13/24 20:30 10/13/24 21:00 Temperature Temperature Source Pulse Rate 83 75 74 Pulse Rate [Right Radial] Respiratory Rate Blood Pressure 133/78 129/83 124/84 Blood Pressure [Right Arm] Blood Pressure Mean 91 Blood Pressure Mean [Right Arm] Blood Pressure Source [Right Arm] Blood Pressure Position Blood Pressure Position [Right Arm] 02 Sat by Pulse Oximetry 97 96 98 Oxygen Delivery Method 10/13/24 21:19 Temperature 98.3 F Temperature Source Oral Pulse Rate 70 Pulse Rate [Right Radial] Respiratory Rate 16 Blood Pressure 124/84 Blood Pressure [Right Arm] Blood Pressure Mean Blood Pressure Mean [Right Arm] Blood Pressure Source [Right Arm] Blood Pressure Position Sitting Blood Pressure Position [Right Arm] 02 Sat by Pulse Oximetry Oxygen Delivery Method Room Air Lab Data Lab Results 10/13/24 19:18: Urine Color Yellow, Urine Appearance Clear, Urine pH 6.0, Ur Specific [place] 1.015, Urine Protein Negative, Urine Glucose (UA) Negative, Urine Ketones Negative, Urine Blood 3+ A, Urine Nitrate Negative, Urine Bilirubin Negative, Urine Urobilinogen 0.2, Ur Leukocyte Esterase Negative, Urine RBC Tntc, Urine WBC 3-5, Ur Squamous Epith Cells 5-10, Urine Bacteria 3+, Urine Mucus 1+ 10/13/24 20:19: Urine Color Yellow, Urine Appearance Clear, Urine pH 6.0, Ur Specific [place] <= 1.005, Urine Protein Negative, Urine Glucose (UA) Negative, Urine Ketones Negative, Urine Blood 3+ A, Urine Nitrate Negative, Urine Bilirubin Negative, Urine Urobilinogen 0.2, Ur Leukocyte Esterase Negative, Urine RBC 50-100, Urine WBC 3-5, Ur Squamous Epith Cells Occasional, Urine Bacteria Trace 10/13/24 : WBC 12.4 H, RBC 4.96, Hgb 14.9, Hct 42.9, MCV 86.5, MCH 30.0, MCHC 34.7, RDW 12.9, Plt Count 277, MPV 11.0 H, Neut % (Auto) 58.1, Lymph % (Auto) 32.0, [place] % (Auto) 6.4, Eos % (Auto) 2.4, Baso % (Auto) 0.5, Neut # (Auto) 7.2, Lymph # (Auto) 4.0, [place] # (Auto) 0.8, Eos # (Auto) 0.3, Baso # (Auto) 0.1, PT 10.6, INR 0.95, Sodium 138, Potassium 3.5, Chloride 102, Carbon Dioxide 22, A nion Gap 17.5 H, BUN 17, Creatinine 1.00, Estimated Creat Clear 138, Estimated GFR 85, Est GFR ( Amer) 102, Glucose 111 H, Calcium 10.2, Magnesium 2.1, Total Bilirubin 0.5, AST 32, ALT 48, Alkaline Phosphatase 66, Troponin I < 0.01, Total Protein 8.1, Albumin 5.3 H, Globulin 2.8, Albumin/Globulin Ratio 1.9 H, Lipase 45 Orders (Tests/Meds): ED MEDICATIONS Discontinued Medications Generic Name Dose Route Start Last Admin Trade Name Freq PRN Reason Stop Dose Admin Famotidine 20 mg 10/13/24 18:10 10/13/24 18:23 Famotidine 20mg/2ml Vial IV 10/13/24 18:11 20 mg ONCE ONE Administration Sodium Chloride 1,000 mls @ 999 mls/hr 10/13/24 18:10 10/13/24 18:23 Sod Chlor 0.9% 1000ml Bag IV 10/13/24 19:10 999 mls/hr .Q1H1M ONE Administration Iopamidol 75 ml 10/13/24 19:13 10/13/24 19:13 Iopamidol-370 (76%);100ml Bottle IV 10/13/24 19:14 75 ml ONCE ONE Administration Ketorolac Tromethamine 30 mg 10/13/24 18:10 10/13/24 18:22 Ketorolac 30mg/Ml Vial IV 10/13/24 18:11 30 mg ONCE ONE Administration Ondansetron HCl 4 mg 10/13/24 18:10 10/13/24 18:22 Ondansetron 4mg/2ml Vial IV 10/13/24 18:11 4 mg ONCE ONE Administration Oxycodone HCl 5 mg 10/13/24 20:55 10/13/24 21:05 Oxycodone 5mg Immediate Release Tablet PO 10/13/24 20:56 5 mg ONCE ONE Administration Sodium Chloride 8 ml 10/13/24 18:10 Sodium Chloride 0.9% 10ml Vial IV 11/12/24 18:09 NEEDED PRN dilute pepcid Sodium Chloride 10 ml 10/13/24 19:13 10/13/24 19:13 Sodium Chloride 0.9% 10ml Syr (Rad Only) IV 10/13/24 19:14 10 ml ONCE ONE Administration Tamsulosin HCl 0.4 mg 10/13/24 20:56 10/13/24 21:05 Tamsulosin 0.4mg Capsule PO 10/13/24 20:57 0.4 mg ONCE ONE Administration ORDERS Category Date Time Status CT abdomen pelvis w con Stat Cat Scan 10/13/24 18:58 Completed CBC [Complete Blood Count Auto Diff] Stat Lab 10/13/24 Completed Comprehensive Metabolic Panel Stat Lab 10/13/24 Completed Lipase Stat Lab 10/13/24 Completed Magnesium Stat Lab 10/13/24 Completed PT INR [Prothrombin Time INR] Stat Lab 10/13/24 Completed Trop I [Troponin I] Stat Lab 10/13/24 Completed UA [Urinalysis and Microscopic] Stat Lab 10/13/24 19:18 Completed UA [Urinalysis and Microscopic] Stat Lab 10/13/24 20:19 Completed Urine Culture Stat Micro 10/13/24 19:18 Received ECG Data Tracing #1: I reviewed this ECG and interpreted as documented below: Normal sinus rhythm with a ventricular to 67 bpm. First-degree AV block with a AR interval of [address] changes concerning for ischemia. Normal intervals otherwise ECG initial impression date: 10/13/24 ECG initial impression time: 18:24 HEART Score HEART Score: 6 Medical Decision Narrative: patient is a 34-year-old male presenting to the emergency department for evaluation of left-sided abdominal pain that started consistently 2 hours ago. Patient is hemodynamically stable and nontoxic-appearing upon arrival, afebrile. Differential diagnosis includes pancreatitis, diverticulitis, bowel obstruction among others. Workup will be conducted with hematologic labs, specific imaging. Initial inventions include crystalloid bolus, analgesics. Awaiting lab results and scan results at this time. Will give report to Dr. Coleman Coleman, DO: I was consulted by the LEELEE, and we discussed the complexity of the problems being addressed. I approved the treatment and management plan for this patient's care in the emergency department, thus performing a substantive portion of the medical decision making. On my assessment of the patient, he is feeling a lot better after Toradol. Labs demonstrate mild leukocytosis. Chemistry is reassuring with normal kidney function. Initial urinalysis contaminated with squamous cells, however repeat urinalysis demonstrates 3+ blood with only 3-5 white blood cells, its negative for leukocyte esterase and nitrates and of not concern for infection. I independently interpreted CT scan prior radiology read and noted obstructive ureterolithiasis with a 5.5 mm stone. Ultimately, pain is controlled, there is no ASHLEY, and the patient has no infection. Given this, I feel that he is appropriate for discharge with instructions for close follow-up with urology and supportive care. He was given prescriptions for oxycodone, Toradol, Flomax, and Zofran as well as strict return precautions. He was discharged after all questions were answered. Karis Coleman DO Critical Care <Kesha Yusuf (ED), COMMERCIAL GREEN BUILDING DESIGNER - Last Filed: 10/13/24 18:59> Critical Care Time Critical Care Time: No
[2024-10-13 18:17] LABS: Hematocrit 42.9 % (42.0-52.0); Hemoglobin 14.9 g/dL (14.1-18.0); Immature Granulocytes % 0.6 %; Mean Corpuscular HGB Conc 34.7 g/dL (31.8-35.4); Mean Corpuscular Hemoglobin 30.0 pg (27.0-31.2); Mean Corpuscular Volume 86.5 fl (80-94); Nucleated Red Blood Cells % 0 %; Platelet Count 277 K/mm3 (142-424); Red Blood Count 4.96 M/mm3 (4.60-6.20); Red Cell Distribution Width-SD 40.4 fL; White Blood Count 12.4 K/mm3 (4.8-10.8)
[2024-10-13] MEDS: ONDANSETRON 4MG/2ML VIAL 4 MG IV (18:22)
[2024-10-13] MEDS: KETOROLAC 30MG/ML VIAL 30 MG IV (18:22)
[2024-10-13] MEDS: 0.9 % SODIUM CHLORIDE 1000ML 1,000 ML 999 ML IV (18:23)
[2024-10-13] MEDS: FAMOTIDINE 20MG/2ML VIAL 20 MG IV (18:23)
--- NOTE | 2024-10-13 18:23 | ECG_ITS ---
APPROVED REPORT Exam: Resting ECG HR:67 bpm ECG Measurements Heart Rate 67 AXES NE 215 P 45 QRSd 118 QRS 40 QT 381 T 16 QTc 397 Conclusion SINUS RHYTHM WITH FIRST DEGREE AV BLOCK WITH OCCASIONAL SUPRAVENTRICULAR PREMATURE COMPLEXES no STEMI Electronically signed by : MALKA GREEN, 10/15/2024 20:50:08
[2024-10-13 18:29] LABS: Alanine Aminotransferase 48 U/L (12-78); Albumin Level 5.3 g/dl (3.5-5.0); Albumin/Globulin Ratio 1.9 (1.1-1.8); Alkaline Phosphatase 66 U/L (38-126); Anion Gap 17.5 mEq/L (5-15); Aspartate Amino Transferase 32 U/L (17-59); Bilirubin,Total 0.5 mg/dl (0.2-1.3); Blood Urea Nitrogen 17 mg/dl (9-20); Calcium 10.2 mg/dl (8.4-10.2); Carbon Dioxide 22 mmol/L (22.0-30.0); Chloride 102 mmol/L (98-107); Creatinine Clearance Estimated 138 mL/min (50-200); Creatinine,Serum 1.00 mg/dl (0.66-1.25); Estimated Glomerular Filt Rate 85 ml/min (>60); GFR (African American) 102 ML/MIN (>60); Globulin 2.8 g/dL (1.3-3.2); Glucose 111 mg/dl (74-100); Lipase 45 U/L (23-300); Magnesium 2.1 mg/dl (1.6-2.3); Potassium 3.5 mmoL/L (3.5-5.1); Sodium 138 mmol/L (136-145); Total Protein,Serum 8.1 g/dl (6.3-8.2)
[2024-10-13 18:33] LABS: INR 0.95 (0.9-1.1); Prothrombin Time 10.6 seconds (10.1-12.5)
[2024-10-13 18:42] LABS: Troponin I < 0.01 ng/ml (0.00-0.034)
--- NOTE | 2024-10-13 18:58 | CT_ITS ---
PROCEDURE INFORMATION: Exam: CT Abdomen And Pelvis With Contrast Exam date and time: 10/13/2024 7:13 PM Age: 34 years old Clinical indication: Abdominal pain; Additional info: L sided abdominal pain TECHNIQUE: Imaging protocol: Computed tomography of the abdomen and pelvis with contrast. Radiation optimization: All CT scans at this facility use at least one of these dose optimization techniques: automated exposure control; mA and/or kV adjustment per patient size (includes targeted exams where dose is matched to clinical indication); or iterative reconstruction. Contrast material: ISOVUE; Contrast volume: 75 ml; Contrast route: IV; COMPARISON: CR XR PELVIS 1-2V 09/06/2022 1:38 AM FINDINGS: Liver: Multiple hypoattenuating circumscribed structures of the liver compatible with simple hepatic cysts with the largest measuring 7.2 cm in diameter. Gallbladder and biliary ducts: The gallbladder is contracted but otherwise unremarkable. Pancreas: Normal. No ductal dilation. Spleen: Normal. No splenomegaly. Adrenal glands: Normal. No mass. Kidneys and ureters: Left distal ureteral calcific density compatible with ureterolith is related to mild left hydronephrosis and hydroureter and measures up to 5.5 mm. Stomach and bowel: Unremarkable. No obstruction. No mucosal thickening. Appendix: No evidence of appendicitis. Intraperitoneal space: Unremarkable. No free air. No significant fluid collection. Vasculature: Unremarkable. No abdominal aortic aneurysm. Lymph nodes: Unremarkable. No enlarged lymph nodes. Urinary bladder: Unremarkable as visualized. Reproductive: Unremarkable as visualized. Bones/joints: Moderate loss of intervertebral disc space with degenerative changes involving L4 through S1. Soft tissues: Normal. IMPRESSION: Mild left hydronephrosis and hydroureter related to left distal ureterolith as described above.
--- NOTE | 2024-10-13 19:11 | PC.NURSE ---
pt taken to ct at this time.
[2024-10-13] MEDS: SODIUM CHLORIDE 0.9% 10ML SYR (RAD ONLY) 10 ML IV (19:13)
[2024-10-13] MEDS: IOPAMIDOL-370 (76%);100ML BOTTLE 75 ML IV (19:13)
--- NOTE | 2024-10-13 19:19 | PC.NURSE ---
pt ambulates with slow steady gait to the restroom to attempt to provide urine for testing.
[2024-10-13 19:24] LABS: Microscopic, Urine URINE MICROSCOPIC (MICROSCOPIC)
--- NOTE | 2024-10-13 19:24 | PC.NURSE ---
pt back in room without incident and hooked back to fluids and monitoring equipment.
[2024-10-13 19:28] LABS: Bilirubin,Urine Negative (Negative); Color,Urine YELLOW (Yellow); Glucose,Urine (UA) Negative (Negative); Ketones,Urine Negative (Negative); Leukocyte Esterase,Urine Negative (Negative); PH,Urine 6.0 (5.0-8.5); Protein,Urine Negative (Negative); Specific Gravity, Urine 1.015 (1.005-1.030); Urobilinogen,Urine 0.2 EU/dl (0.2)
[2024-10-13 19:47] LABS: Bacteria,Urine 3+ /lpf; Mucus,Urine 1+ /lpf; RBC,Urine TNTC #/hpf (0-3)
[2024-10-13 20:24] LABS: Microscopic, Urine URINE MICROSCOPIC (MICROSCOPIC)
[2024-10-13 20:25] LABS: Bilirubin,Urine Negative (Negative); Color,Urine YELLOW (Yellow); Glucose,Urine (UA) Negative (Negative); Ketones,Urine Negative (Negative); Leukocyte Esterase,Urine Negative (Negative); PH,Urine 6.0 (5.0-8.5); Protein,Urine Negative (Negative); Specific Gravity, Urine <= 1.005 (1.005-1.030); Urobilinogen,Urine 0.2 EU/dl (0.2)
[2024-10-13 20:53] LABS: Bacteria,Urine Trace /lpf; RBC,Urine 50-100 #/hpf (0-3); Squamous Epithelial Cell,Urine Occasional #/hpf (0-5)
[2024-10-13] MEDS: OXYCODONE 5MG IMMEDIATE RELEASE TABLET 5 MG PO (21:05)
[2024-10-13] MEDS: TAMSULOSIN 0.4MG CAPSULE 0.4 MG PO (21:05)
== END 2024-10-13 21:21 | disposition home or self-care (01) ==
PROVIDERS: Nurse Practitioner; Emergency Provider Emergency Medicine; PCP Family Medicine
DX: N13.0 Hydronephrosis with ureteropelvic junction obstruction (principal); N13.4 Hydroureter; R10.32 Left lower quadrant pain; I44.0 Atrioventricular block, first degree
CPT/HCPCS: 74177; 80053; 81001; 83690; 83735; 84484; 85025; 85610; 87086; 93005; 96361; 96374; 96375; 99285; J1885; J2405; J7030; Q9967

== ENCOUNTER 2024-10-30 07:20 | Outpatient (CLI) | payer BC, SELFPAY ==
--- OUTSIDE RECORDS SUMMARY | 2024-10-30 07:22 | XMS_ITS | Continuity of Care Document ---
Author Organization [facility] Address [address] [place] [phone] Care Team Providers Care Vigoureux Printer Name Role Phone RITA MCGINNIS Primary Care Provider Assessment No assessment recorded. Plan of Treatment Reminders Order Date Submit Date Provider Last Modified By Organization Details Last Modified Time Details Appointments OV EST 15 2024 11:00A M Jean Wade Jr, MD Not available Not available Not available OV EST 15 2024 09:00A M Jean Wade Jr, MD Not available Not available Not available Lab urinalysi s, dipstick 2024 025 [email or web address] [facility], [address] [place] [address], [phone], 10/19/2024 14:50:53 Referral None recorded. Procedures None recorded. Surgeries None recorded. Imaging None recorded. Medication Orders None recorded. Patient TargetsNo targets recorded. Patient InstructionsNo instructions recorded. Reason for Referral None Reported. Results Created Date Observation Date Name Description Value Unit Range Abnormal Flag Note LastModifiedBy Organization Detail LastModifiedTime 10/20/19 25 10/19/2024 urina lysis , dipst ick Leukocytes (reference range) negati ve Not Available [facility] [address] [place] [address], [phone], 10/19/2024 13:34:48 10/20/19 25 10/19/2024 urina lysis , dipst ick Nitrite (reference range:) negati ve Not Available [address], [address], 10/19/2024 13:34:48 10/20/19 25 10/19/2024 urina lysis , dipst ick Urobilinogen (reference range) 0.2 Not Available [address], [address], 10/19/2024 13:34:48 10/20/19 25 10/19/2024 urina lysis , dipst ick Protein (reference range) negati ve Not Available [address], [address], 10/19/2024 13:34:48 10/20/19 25 10/19/2024 urina lysis , dipst ick pH (reference range 5-8.5) 5.5 Not Available [address], [address], 10/19/2024 13:34:48 10/20/19 25 10/19/2024 urina lysis , dipst ick Blood (reference range:) negati ve Not Available [address], [address], 10/19/2024 13:34:48 10/20/19 25 10/19/2024 urina lysis , dipst ick Specific [place] (reference range) 1.030 Not Available [address], [address], 10/19/2024 13:34:48 10/20/19 25 10/19/2024 urina lysis , dipst ick Ketone (reference range) negati ve Not Available [address], [address], 10/19/2024 13:34:48 10/20/19 25 10/19/2024 urina lysis , dipst ick Bilirubin (reference range) negati ve Not Available [facility] [address] [place] [address], [phone], 10/19/2024 13:34:48 10/20/19 25 10/19/2024 urina lysis , dipst ick Glucose (reference range) negati ve Not Available [facility] [address] [place] [address], [address], 10/19/2024 13:34:48 10/20/19 25 10/19/2024 urina lysis , dipst ick Color (reference range: yellow-brown ) Yellow Not Available [facility] [address] [place] [address], [phone], 10/19/2024 13:34:48 10/20/19 25 10/13/2024 CT, abdom en + pelvi s, w/ contr ast No observ ation record ed. [email or web address] [facility] (Med Record) [address], [place], [address], 10/19/2024 16:03:29 Result Notes None recorded. Procedures Surgical History Date Name Laterality Status Provider Name and Address Organization Details Recorded Time 04/15/1999 Other completed [facility] & [place] 10/19/2024 13:05:12 04/15/1994 Other [facility] & [place] 10/19/2024 13:05:12 Imaging Results None recorded. Procedure Notes None recorded. Medical Equipment None Reported. Allergies No known drug allergies Medications Name Sig Start Date Stop Date Status Note LastModified by Organization Details LastModified Time azithromycin 250 mg tablet TAKE 2 TABLETS BY MOUTH ON DAY 1, THEN TAKE 1 TABLET DAILY ON DAYS 2-5 active Not Available Not Available No t Available ibuprofen 800 mg tablet TAKE 1 TABLET BY MOUTH THREE TIMES DAILY NEEDED FOR 10 DAYS active Not Available Not Available No t Available prednisone 20 mg tablet TAKE 2 TABLETS BY MOUTH ONCE DAILY FOR 5 DAYS active Not Available Not Available No t Available methocarbamol 750 mg tablet TAKE 2 TABLETS BY MOUTH THREE TIMES DAILY FOR 5 DAYS active Not Available Not Available No t Available tamsulosin 0.4 mg capsule TAKE 1 CAPSULE BY MOUTH AT BEDTIME NIGHTLY active Not Available Not Available No t Available ondansetron 4 mg disintegrating tablet DISSOLVE 1 TABLET IN MOUTH EVERY 8 HOURS NEEDED FOR NAUSEA AND VOMITING FOR 4 DAYS active Not Available Not Available No t Available cefdinir 300 mg capsule TAKE 1 CAPSULE BY MOUTH TWICE DAILY active Not Available Not Available No t Available oxycodone 5 mg tablet TAKE 1 TABLET BY MOUTH EVERY 8 HOURS NEEDED FOR PAIN active Not Available Not Available No t Available Vitals Date Recorded Body height Body mass index (BMI) Body weight Provider Name and Address Organization Details Last Updated DateTime 10/19/2024 167.64 cm 34.2 kg/m2 14175.58 g Stephanie Epps [facility] & [place] 10/19/2024 13:04:52 Social History Question Answer Notes LastModified by [employer] ion Details LastModified Time Tobacco Smoking Status Current Every Day Smoker Stephanie Epps [facility] & [place] 10/19/2024 13:05:09 Do You Have An Advance Directive? No [email or web address] Information not available 10/19/2024 Are You Blind Or Do You Have Difficulty Seeing? No [email or web address] Information not available 10/19/2024 What Was The Date Of Your Most Recent Tobacco Screening? 10/19/2024 [email or web address] Information not available 10/19/2024 Are You Passively Exposed To Smoke? Yes Information not available 10/19/2024 How Much Tobacco Do You Smoke? 0.5 PPD [email or web address] Information not available 10/19/2024 How Many Years Have You Smoked Tobacco? 17 [email or web address] Information not available 10/19/2024 Sex: Male Functional Status Question Answer Note LastModified by Organizat ion Details LastModified Time Do you use any illicit or recreational drugs? No [email or web address] Information not available 10/19/2024 What is your level of alcohol consumption? Occasional [email or web address] Information not available 10/19/2024 Do you or have you ever used smokeless tobacco? Former smokeless tobacco user [email or web address] Information not available 10/19/2024 What is your exercise level? Occasional [email or web address] Information not available 10/19/2024 Mental Status Question Answer Note LastModified by Organization D etails LastModified Time Do you feel stressed (tense, restless, nervous, or anxious, or unable to sleep at night)? [id number] [email or web address] Information not available 10/19/2024 Family History Relationship Description Onset Age of this Age Resolved Age Notes LastModified by Organization Details LastModified Time Mother Hypertensive disorder pt. added direct ly (10/19) CHART_MERGE Not available 10/19/2024 11:26:23 Mother Cerebrovascu lar accident pt. added direct ly (10/19) CHART_MERGE Not available 10/19/2024 11:26:23 Father Hypertensive disorder pt. added direct ly (10/19) CHART_MERGE Not available 10/19/2024 11:26:23 Maternal Grandfather Hypertensive disorder pt. added direct ly (10/19) CHART_MERGE Not available 10/19/2024 11:26:23 Maternal Grandmother Cerebrovascu lar accident pt. added direct ly (10/19) CHART_MERGE Not available 10/19/2024 11:26:23 Paternal Grandmother Cerebrovascu lar accident pt. added direct ly (10/19) CHART_MERGE Not available 10/19/2024 11:26:23 Medical History Condition Response None Y Past Encounters Encounter ID Performer Location Encounter Start Date Encounter Closed Date Diagnosis/Indication Diagnosis SNOMED-CT Code Diagnosis ICD10 Code Diagnosis Note [id number] Jean Wade Jr, MD [facility] [address] [place] [phone] 10/19/2024 12:49:07 10/19/2024 13:38:16 Ureteric stone 02669131 N20.1 34-year-ol d white male with 5.5 mm stone in his distal left ureter. Pain has been better since his emergency room visit last week. We discussed treatment options today including trial of passage versus ureterosco py and stone extraction . Patient would like to observe trial of passage for a few more days but if he was not passed a stone we discussed proceeding with stone extraction on Saturday. We discussed the operative procedure, complicati ons and postoperat susannah course including possible need for stent. He was set this a general anesthesia . He was to continue the tamsulosin daily. He was oxycodone and Zofran needed. Health Concerns Section Related Observation LastModified by Organization Detai ls LastModified Time None Recorded Concern Status LastModified by Organization Details LastModified Time None Recorded Payers Encounter Date Sequence Insurance Name Policy Number Policy Collazo Covered Member ID Collazo Member ID Guarantor Name 10/19/2024 1 [employer] [id number] Osorio Platt [id number] Osorio Platt Notes Date Note Type Note Provider Name and Address Organization Details Recorded Time 10/19/2024 text/html patient is 34-year-old white male referred for left ureteral stone. Patient states that on October 13 he had the acute onset of left-sided flank pain. He went to the emergency room in [facility] and CT revealed a 5.5 mm stone in the distal left ureter with mild hydronephrosis. He also had multiple right liver cyst the largest of which was 7.2 cm. He denies a previous history of stones and was unaware of any cyst in his liver. States his pain has been better since his emergency room visit on October 13. Records were reviewed from emergency room visit as well as the CT report. Patient has been able to work and eat. Jean Wade Jr, MD [address] [place] [address], [address], [place], [address], [facility] - [facility] - [place] & [place] 10/19/2024 15:14:58
--- OUTSIDE RECORDS SUMMARY | 2024-10-30 07:22 | XMS_ITS | Clinical Summary ---
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
--- OUTSIDE RECORDS SUMMARY | 2024-10-30 07:22 | XMS_ITS | Data Portability ---
Author Organization [place] - [facility] & [place] [facility] Address [address] [place] [phone] Care Team Providers Care Gypsum Roofer Name Role Phone RAHELRITA MOCK Primary Care Provider Assessment No assessment recorded. Plan of Treatment Reminders Order Date Submit Date Provider Last Modified By Organization Details Last Modified Time Details Appointments OV EST 15 2024 11:00A Remigio Wade Jr, MD Not available Not available Not available OV EST 15 2024 09:00A Remigio Wade Jr, MD Not available Not available Not available Lab urinalysi s, dipstick 2024 07 025 [email or web address] [facility], [address] [place] [address], [phone], 10/19/2024 14:50:53 Referral None recorded. Procedures None recorded. Surgeries None recorded. Imaging None recorded. Medication Orders None recorded. Patient TargetsNo targets recorded. Patient InstructionsNo instructions recorded. Reason for Referral None Reported. Results Created Date Observation Date Name Description Value Unit Range Abnormal Flag Note LastModifiedBy Organization Detail LastModifiedTime 10/20/19 25 10/19/2024 urina lysis , dipst ick Leukocytes (reference range) negati ve Not Available [facility] [address] [place] [address], [phone], 10/19/2024 13:34:48 10/20/19 25 10/19/2024 urina lysis , dipst ick Nitrite (reference range:) negati ve Not Available [facility] [address] [place] [address], [address], 10/19/2024 13:34:48 10/20/19 25 10/19/2024 urina lysis , dipst ick Urobilinogen (reference range) 0.2 Not Available [address], [address], 10/19/2024 13:34:48 10/20/19 25 10/19/2024 urina lysis , dipst ick Protein (reference range) negati ve Not Available [address], [address], 10/19/2024 13:34:48 10/20/19 25 10/19/2024 urina lysis , dipst ick pH (reference range 5-8.5) 5.5 Not Available [address], [address], 10/19/2024 13:34:48 10/20/19 25 10/19/2024 urina lysis , dipst ick Blood (reference range:) negati ve Not Available [address], [address], 10/19/2024 13:34:48 10/20/19 25 10/19/2024 urina lysis , dipst ick Specific [place] (reference range) 1.030 Not Available [address], [address], 10/19/2024 13:34:48 10/20/19 25 10/19/2024 urina lysis , dipst ick Ketone (reference range) negati ve Not Available [address], [address], 10/19/2024 13:34:48 10/20/19 25 10/19/2024 urina lysis , dipst ick Bilirubin (reference range) negati ve Not Available [facility] [address] [place] [address], [address], 10/19/2024 13:34:48 10/20/1910/19/2024 urina lysis , dipst ick Glucose (reference range) negati ve Not Available [facility] [address] [place] [address], [address], 10/19/2024 13:34:48 10/20/1910/19/2024 urina lysis , dipst ick Color (reference range: yellow-brown ) Yellow Not Available [facility] [address] [place] [address], [address], 10/19/2024 13:34:48 10/20/19 25 10/13/2024 CT, abdom en + pelvi s, w/ contr ast No observ ation record ed. [email or web address] [facility] (Med Record) [address], [place], [address], 10/19/2024 16:03:29 Result Notes None recorded. Procedures Surgical History Date Name Laterality Status Provider Name and Address Organization Details Recorded Time 04/15/1999 Other completed [facility] & [place] 10/19/2024 13:05:12 04/15/1994 Other [facility] & [place] 10/19/2024 13:05:12 Imaging Results None recorded. Procedure [...] Updated DateTime 10/19/2024 167.64 cm 34.2 kg/m2 06698.58 g Stephanie Epps [facility] & [place] 10/19/2024 13:04:52 Social History Question Answer Notes LastModified by Organizat ion Details LastModified Time Tobacco Smoking Status Current Every Day Smoker Stephanie Epps [facility] & [place] 10/19/2024 13:05:09 Do You Have An Advance Directive? No [email or web address] Information not available 10/19/2024 Are You Blind Or Do You Have Difficulty Seeing? No [email or web address] Information not available 10/19/2024 What Was The Date Of Your Most Recent Tobacco Screening? 10/19/2024 [email or web address] Information not available 10/19/2024 Are You Passively Exposed To Smoke? Yes [email or web address] Information not available 10/19/2024 How Much Tobacco Do You Smoke? 0.5 PPD [email or web address] Information not available 10/19/2024 How Many Years Have You Smoked Tobacco? 17 [email or web address] Information not available 10/19/2024 Sex: Male Functional Status Question Answer Note LastModified by Organizat ion Details LastModified Time Do you use any illicit or recreational drugs? No [email or web address] Information not available 10/19/2024 What is your level of alcohol consumption? Occasional [email or web address] Information not available 10/19/2024 Do you or have you ever used smokeless tobacco? Former smokeless tobacco user [email or web address] Information not available 10/19/2024 What is your exercise level? Occasional [email or web address] Information not available 10/19/2024 Mental Status Question Answer Note LastModified by Organization D etails LastModified Time Do you feel stressed (tense, restless, nervous, or anxious, or unable to sleep at night)? [id number] [email or web address] Information not available 10/19/2024 Family History Relationship [...] SNOMED-CT Code Diagnosis ICD10 Code Diagnosis Note [id number] Jean Wade Jr, MD [facility] [address] [place] [phone] 10/19/2024 12:49:07 10/19/2024 13:38:16 Ureteric stone 95535565 N20.1 34-year-ol d white male with 5.5 [...] by Organization Details LastModified Time None Recorded Advance Directives Directive N: Payers Insurance Date Sequence Insurance Name Policy Number Policy Collazo Covered Member ID Collazo Member ID Guarantor Name 10/27/2024 1 [place] [id number] Osorio Platt [id number] Osorio Platt Notes Date Note Type Note Provider Name and Address Organization Details Recorded Time 10/19/2024 text/html patient is 34-year-old white male referred for left ureteral stone. Patient states that on October 13 he had the acute onset of left-sided flank pain. He went to the emergency room in [facility] and CT revealed a 5.5 [...] work and eat. Jean Wade Jr, MD [address] [place] [address], [address], [place], [address], [place] - [facility] - [place] & [place] 10/19/2024 15:14:58
--- NOTE | 2024-10-30 07:23 | US_ITS ---
FINAL REPORT CLINICAL HISTORY: LIVER CYST COMPARISON: None FINDINGS: Sonographic images of the right upper quadrant were obtained. The pancreas is partially obscured. There is fatty infiltration of the liver. There is a central cyst within the liver measuring 9 mm. The gallbladder is contracted without obvious stone disease. There is no evidence of biliary ductal dilatation. The common duct measures 3 mm. Limited images of the right kidney are unremarkable. IMPRESSION: Fatty changes of the liver. No acute findings. Reviewed, Interpreted and Dictated by Milka Bee MD Transcribed by Lydia English Authenticated and [facility]
== END 2024-10-30 23:59 | disposition home or self-care (01) ==
LOC: RAD 07:21
PROVIDERS: PCP Family Medicine; Visit Provider Family Medicine
DX: K76.0 Fatty (change of) liver, not elsewhere classified (principal); K76.89 Other specified diseases of liver
CPT/HCPCS: 76705